=== PATIENT | male | born 1995 | race Caucasian/White ===

== ENCOUNTER 2018-11-19 17:21 | Emergency (ER) | payer OTHER ==
[~2018-11-19] VITALS: Ht 185.4 cm; Wt 83.9 kg
[2018-11-19] MEDS ORDERED: IBUPROFEN 600600 M1 PO (18:44)
[2018-11-19] MEDS ORDERED: ACETAMINOPHEN-1 EAC1 PO (18:44)
[2018-11-19 19:34] VITALS: BP 127/96
== END 2018-11-19 19:34 | disposition home or self-care (01) ==
LOC: M.ERS 17:21
DX: S22.32XA Fracture of one rib, left side, initial encounter for closed fracture (principal); F17.200 Nicotine dependence, unspecified, uncomplicated; W01.0XXA Fall on same level from slipping, tripping and stumbling without subsequent striking against object, initial encounter; Y93.89 Activity, other specified; Y92.89 Other specified places as the place of occurrence of the external cause; Y99.8 Other external cause status